=== PATIENT | female | born 1965 | race African-American/Black ===

== ENCOUNTER → 2018-04-27 | Outpatient (CLI) | payer BC ==
--- NOTE | 2018-04-27 14:00 | MM ---
Reason for exam: screening (asymptomatic). Last mammogram was performed 2 years and 10 months ago. Physical Findings: A clinical breast exam by your physician is recommended on an annual basis and results should be correlated with mammographic findings. MG Screening Mammo w CAD Bilateral CC and MLO view(s) were taken. Prior study comparison: July 01, 2015, bilateral MG screening mammo w CAD. March 28, 2013, bilateral digital screening mammo w/CAD. The breast tissue is extremely dense which could obscure a lesion on mammography. There is no discrete abnormality. ASSESSMENT: Negative, BI-RAD 1 RECOMMENDATION: Routine screening mammogram of both breasts in 1 year.
== END | disposition home or self-care (01) ==
LOC: RADMAMWWP 06:54
PROVIDERS: ATTEND Family Medicine
DX: Z12.31 Encounter for screening mammogram for malignant neoplasm of breast (principal)
CPT/HCPCS: 77067

== ENCOUNTER 2018-06-24 06:37 | Day surgery (SDC) | payer BC ==
[2018-06-22 09:02] VITALS: BMI 37.4
[~2018-06-24 06:37] MED LIST: LACTATED RINGERS 1,000 ML IV SCH
[2018-06-24 07:01] VITALS: TEMP 98
[2018-06-24] MEDS ORDERED: LACTATED RINGERS 1,000 ML IV ONE ×2 (07:12)
--- NOTE | 2018-06-24 07:27 | P.GSHP ---
History of Present Illness H&P Date: 06/24/18 CHIEF COMPLAINT: Colon screen HISTORY OF PRESENT ILLNESS: The patient is a 53-year-old female who presents for colon screen. Lower endoscopy was offered for further evaluation and management. PAST MEDICAL HISTORY: Please see list. PAST SURGICAL HISTORY: Please see list. MEDICATIONS: Please see list. ALLERGIES: Please see list. SOCIAL HISTORY: No illicit drug use FAMILY HISTORY: No reports of Crohn disease or ulcerative colitis. REVIEW OF ORGAN SYSTEMS: CONSTITUTIONAL: No reports of fevers or chills. PHYSICAL EXAM: VITAL SIGNS: Stable GENERAL: Well-developed pleasant in no acute distress. HEENT: No scleral icterus. Extraocular movements grossly intact. Moist buccal mucosa. NECK: Supple without lymphadenopathy. CHEST: Unlabored respirations. Equal bilateral excursions. CARDIOVASCULAR: Regular rate and rhythm. Distal 2+ pulses. ABDOMEN: Soft, nontender, nondistended. MUSCULOSKELETAL: No clubbing, cyanosis, or edema. ASSESSMENT: 1. Colon screen. PLAN: 1. Recommend proceeding with a lower endoscopy Past Medical History Past Medical History: Hypertension History of Any Multi-Drug Resistant Organisms: None Reported Past Surgical History: No Surgical Hx Reported Past Anesthesia/Blood Transfusion Reactions: No Reported Reaction Additional Past Anesthesia/Blood Transfusion Reaction / Comment(s): NO PRIOR SURGICAL HX Smoking Status: Current every day smoker - Past Family History Mother Family Medical History: No Reported History Medications and Allergies Home Medications Medication Instructions Recorded Confirmed Type Hydrochlorothiazide [Hydrodiuril] 25 mg PO DAILY 06/22/18 06/22/18 History Allergies Allergy/AdvReac Type Severity Reaction Status Date / Time No Known Allergies Allergy Verified 06/22/18 08:57 Surgical - Exam Vital Signs Temp Pulse Resp BP Pulse Ox 98.0 F 93 18 139/86 100 06/24/18 06:59 06/24/18 06:59 06/24/18 06:59 06/24/18 06:59 06/24/18 06:59
[2018-06-24] MEDS ORDERED: MIDAZOLAM 2 MG/2 ML VIAL ONE (07:28)
[2018-06-24] MEDS ORDERED: PROPOFOL 10 MG/ML 20 ML VIAL IV ONE (07:28)
[2018-06-24] MEDS ORDERED: fentaNYL (PF) 50 MCG/ML 2 ML AMP ONE (07:28)
[2018-06-24 08:07] VITALS: BP 121/89; PULSE 77; RESP 16
--- NOTE | 2018-06-24 08:54 | P.PCN ---
Date of Procedure: 06/24/18 Description of Procedure: PREOPERATIVE DIAGNOSIS: Colonoscopy screening, first POSTOPERATIVE DIAGNOSIS: Colonoscopy screening, first Multiple tubular adenomas throughout the colon. External hemorrhoids, grade 3. OPERATION: Colonoscopy to the ileocecal valve and appendiceal orifice. Colonoscopy with multiple cold forceps biopsies. SURGEON: Andreea Marquez MD. ANESTHESIA: MAC. INDICATIONS: The patient is a 53-year-old female who presents for her FIRST colonoscopy screening. Benefits and risks were described and informed consent was obtained. DESCRIPTION OF PROCEDURE: The patient had undergone Gatorade, MiraLAX and Dulcolax prep. She had been brought into the operating room and laid in the left lateral decubitus position. After adequate intravenous sedation, the rectum was examined with 2% lidocaine jelly. External hemorrhoids were encountered. The rectal tone was within normal limits. No lesions were palpated in the rectal vault. An Olympus colonoscope was advanced until the ileocecal valve and appendiceal orifice were clearly viewed. The prep was fair with visualization of the mucosal folds. The scope was removed with visualization of each mucosal fold. No scattered diverticulosis was encountered. Multiple colonic polyps were found and cold forcep biopsy. No evidence of focal colitis was found. Retroflexion of the scope demonstrated grade 1 internal hemorrhoids without active bleeding or inflammation. The colon was desufflated. The patient had tolerated the procedure well. Withdrawal time was over 6 minutes. FINDINGS: Internal hemorrhoids, grade 1 External hemorrhoids, grade 3. No arteriovenous malformations. No sigmoid diverticulosis Removal of 4 polyps: - Cold forceps biopsy at 20 cm from the anal verge, 3 mm polyps x 2, sigmoid colon - Cold forceps biopsy at 70 cm from the anal verge, 4 mm polyp, descending colon - Cold forceps biopsy at proximal ascending colon, 4 mm polyp. No focal colitis. RECOMMENDATIONS: Given severity of tubular adenomas, recommend repeat colonoscopy 5 years, 2022 Plan - Discharge Summary New Discharge Prescriptions: No Action Hydrochlorothiazide [Hydrodiuril] 25 mg PO DAILY Discharge Medication List Hydrochlorothiazide [Hydrodiuril] 25 mg PO DAILY 06/22/18 [History] Follow up Appointment(s)/Referral(s): Andreea Marquez MD [STAFF PHYSICIAN] - As Needed Patient Instructions/Handouts: *Surgery [facility] - (Anesthesia) Endoscopy Discharge Instructions, Gastric Polyps (DC), Colonoscopy (DC) Activity/Diet/Wound Care/Special Instructions: Follow-up in 5 years, 2022 Discharge Disposition: HOME SELF-CARE
== END 2018-06-24 08:37 | disposition home or self-care (01) ==
LOC: ORWHC2ENDO 06:37
PROVIDERS: ATTEND Surgery Plastic and Reconstructive Surgery
DX: Z12.11 Encounter for screening for malignant neoplasm of colon (principal); D12.2 Benign neoplasm of ascending colon; K63.5 Polyp of colon; K64.0 First degree hemorrhoids; K64.2 Third degree hemorrhoids; I10 Essential (primary) hypertension; F17.200 Nicotine dependence, unspecified, uncomplicated; Z79.899 Other long term (current) drug therapy
CPT/HCPCS: 81025; 88305; 45380; J2250; J3010; J2704

== ENCOUNTER → 2018-12-16 | Outpatient (CLI) | payer BC ==
--- NOTE | 2018-12-16 12:41 | ECHOS ---
STRESS ECHOCARDIOGRAM DATE OF SERVICE: 12/16/2018 INDICATIONS: Abnormal EKG. MEDICATIONS: BASELINE HEART RATE: 94 BASELINE BLOOD PRESSURE: 141/74 MAXIMUM HEART RATE: 142 MAXIMUM BLOOD PRESSURE: 167/78 85% MPHR: 142 100% MPHR: 167 METS: 7.1 MAXIMUM STAGE REACHED: II TOTAL EXERCISE TIME: 6 minutes CLINICAL INFORMATION: Patient was exercised for a total period of 6 minutes. The peak heart rate of 142 was achieved. Maximum blood pressure of 167/78 mmHg was noted. Resting EKG shows normal sinus rhythm with normal NC interval and QRS duration and normal ST-T waves. No ST- segment depression suggestive of ischemia is noted. The baseline echocardiographic images reveal normal left ventricular chamber size with normal left ventricular systolic function. In the immediate postexercise period, normal increase in the wall thickness and contractility is noted. FINAL IMPRESSION: This stress echocardiographic study is negative for stress-induced ischemia. EKG portion of the stress test is not suggestive of ischemia. MMODL / IJN: [id number] /
== END | disposition home or self-care (01) ==
LOC: RADNMMAIN 08:58
PROVIDERS: ATTEND Family Medicine
DX: R94.31 Abnormal electrocardiogram [ECG] [EKG] (principal)
CPT/HCPCS: 93351

== ENCOUNTER → 2020-11-27 | Outpatient (CLI) | payer BC ==
--- NOTE | 2020-11-28 13:42 | MM ---
Reason for exam: screening (asymptomatic). Last mammogram was performed 2 years and 7 months ago. History: Patient is postmenopausal. Physical Findings: A clinical breast exam by your physician is recommended on an annual basis and results should be correlated with mammographic findings. MG Screening Mammo w CAD Bilateral CC and MLO view(s) were taken. Prior study comparison: April 27, 2018, bilateral MG screening mammo w CAD. July 01, 2015, bilateral MG screening mammo w CAD. The breast tissue is heterogeneously dense. This may lower the sensitivity of mammography. No significant changes when compared with prior studies. ASSESSMENT: Benign, BI-RAD 2 RECOMMENDATION: Routine screening mammogram of both breasts in 1 year.
== END | disposition home or self-care (01) ==
LOC: RADMAMWWP 07:50
PROVIDERS: ATTEND Family Medicine
DX: Z12.31 Encounter for screening mammogram for malignant neoplasm of breast (principal)
CPT/HCPCS: 77067

== ENCOUNTER → 2022-10-07 | Outpatient (CLI) | payer BC ==
--- NOTE | 2022-10-08 17:43 | MM ---
Reason for Exam: Screening (asymptomatic). Last mammogram was performed 1 year(s) and 10 month(s) ago. Patient History: Menarche at age 11. First Full-Term at age 17. Postmenopausal. Risk Values: [place] 5 year model risk: 1.0%. NCI Lifetime model risk: 6.3%. Prior Study Comparison: 07/01/2015 Bilateral Screening Mammogram, [facility]. 04/27/2018 Bilateral Screening Mammogram, [facility]. 11/27/2020 Bilateral Screening Mammogram, [facility]. Tissue Density: The breast tissue is extremely dense which could obscure a lesion on mammography. Findings: Analyzed By CAD. Pattern appears stable. No significant interval change is evident. Stable focal asymmetry is 12:00 position left breast. No suspicious groups of microcalcifications, spiculated or lobular masses, architectural distortion or other secondary signs of malignancy are mammographically apparent. Overall Assessment: Benign, BI-RAD 2 Management: Screening Mammogram of both breasts in 1 year. A negative mammogram report should not preclude additional follow up of suspicious palpable abnormalities. Patient should continue monthly self breast exam. A clinical breast exam by your physician is recommended on an annual basis and results should be correlated with mammographic findings. Electronically signed and approved by: Nate Adhikari D.O. Radiologis
== END | disposition home or self-care (01) ==
LOC: RADMAMWWP 15:56
PROVIDERS: ATTEND Family Medicine
DX: Z12.31 Encounter for screening mammogram for malignant neoplasm of breast (principal); Z78.0 Asymptomatic menopausal state
CPT/HCPCS: 77067

== ENCOUNTER 2024-08-09 08:16 | Day surgery (SDC) | payer BC, OTHER ==
[2024-08-07 14:33] VITALS: BMI 32.9
[2024-08-09 08:37] VITALS: TEMP 96.1
[2024-08-09] MEDS: IV FLUID CONTINUATION 1,000 ML IV ONE (08:43)
[2024-08-09] MEDS ORDERED: PROPOFOL 10 MG/ML 20 ML VIAL IV ONE (09:10)
--- NOTE | 2024-08-09 09:55 | P.GSHP ---
History of Present Illness H&P Date: 08/09/24 CHIEF COMPLAINT: Colon screen HISTORY OF PRESENT ILLNESS: The patient is a 59-year-old female who presents for colon screen. Lower endoscopy was offered for further evaluation and management. PAST MEDICAL HISTORY: Please see list. PAST SURGICAL HISTORY: Please see list. MEDICATIONS: Please see list. ALLERGIES: Please see list. SOCIAL HISTORY: No illicit drug use FAMILY HISTORY: No reports of Crohn disease or ulcerative colitis. REVIEW OF ORGAN SYSTEMS: CONSTITUTIONAL: No reports of fevers or chills. PHYSICAL EXAM: VITAL SIGNS: Stable GENERAL: Well-developed pleasant in no acute distress. HEENT: No scleral icterus. Extraocular movements grossly intact. Moist buccal mucosa. NECK: Supple without lymphadenopathy. CHEST: Unlabored respirations. Equal bilateral excursions. CARDIOVASCULAR: Regular rate and rhythm. Distal 2+ pulses. ABDOMEN: Soft, nontender, nondistended. MUSCULOSKELETAL: No clubbing, cyanosis, or edema. ASSESSMENT: 1. Colon screen. PLAN: 1. Recommend proceeding with a lower endoscopy Past Medical History Past Medical History: Hyperlipidemia, Thyroid Disorder History of Any Multi-Drug Resistant Organisms: None Reported Past Surgical History: Section, Tubal Ligation Additional Past Surgical History / Comment(s): Colonoscopy, thyroidectomy Past Anesthesia/Blood Transfusion Reactions: No Reported Reaction Smoking Status: Vaper - Past Family History Mother Family Medical History: No Reported History Medications and Allergies Home Medications Medication Instructions Recorded Confirmed Type Cholecalciferol [Vitamin D3 (10 10 mcg PO DAILY 08/07/24 08/07/24 History Mcg = 400 Iu)] Levothyroxine Sodium [Synthroid] 125 mcg PO DAILY 08/07/24 08/07/24 History Lisinopril-Hctz 10-12.5 mg 1 tab PO DAILY 08/07/24 08/07/24 History [Zestoretic 10-12.5] Allergies Allergy/AdvReac Type Severity Reaction Status Date / Time No Known Allergies Allergy Verified 08/09/24 08:32 Surgical - Exam Vital Signs Temp Pulse Resp BP Pulse Ox 96.1 F L 74 16 132/75 96 08/09/24 08:36 08/09/24 08:36 08/09/24 08:36 08/09/24 08:36 08/09/24 08:36
--- NOTE | 2024-08-09 09:56 | P.PCN ---
Date of Procedure: 08/09/24 Description of Procedure: PREOPERATIVE DIAGNOSIS: Personal history colon polyp Colonoscopy screening. POSTOPERATIVE DIAGNOSIS: Colonoscopy screening. Internal/external hemorrhoids, grade 2 OPERATION: Colonoscopy to the cecum, ileocecal valve and appendiceal orifice. SURGEON: Andreea Marquez MD. ANESTHESIA: MAC. INDICATIONS: The patient is a 59-year-old female who presents for colonoscopy screening. Benefits and risks were described and informed consent was obtained. DESCRIPTION OF PROCEDURE: The patient had undergone GoLytely prep. The patient had been brought into the operating room and laid in the left lateral decubitus position. After adequate intravenous sedation, the rectum was examined with 2% lidocaine jelly. External hemorrhoids were encountered. The rectal tone was within normal limits. No lesions were palpated in the rectal vault. An Olympus colonoscope was advanced until the cecum, ileocecal valve and appendiceal orifice were clearly viewed. The prep was good. No scattered diverticulosis was encountered. No colonic polyps were found. No evidence of focal colitis was found. Retroflexion of the scope demonstrated grade 2 internal hemorrhoids without active bleeding or inflammation. The colon was desufflated. The patient had tolerated the procedure well. Withdrawal time was over 6 minutes. FINDINGS: Aronchick preparation quality scale 2 (1-5) Internal hemorrhoids, grade 2 External prolapsed hemorrhoids, grade 2 No arteriovenous malformations. No adenomatous polyps. No focal colitis. RECOMMENDATIONS: Lower endoscopy in 5 years, 2028 Plan - Discharge Summary Discharge Rx Participant: No New Discharge Prescriptions: Continue Cholecalciferol [Vitamin D3 (10 Mcg = 400 Iu)] 10 mcg PO DAILY Lisinopril-Hctz 10-12.5 mg [Zestoretic 10-12.5] 1 tab PO DAILY Levothyroxine Sodium [Synthroid] 125 mcg PO DAILY Discharge Medication List Cholecalciferol [Vitamin D3 (10 Mcg = 400 Iu)] 10 mcg PO DAILY 08/07/24 [History] Levothyroxine Sodium [Synthroid] 125 mcg PO DAILY 08/07/24 [History] Lisinopril-Hctz 10-12.5 mg [Zestoretic 10-12.5] 1 tab PO DAILY 08/07/24 [History] Follow up Appointment(s)/Referral(s): Andreea Marquez MD [STAFF PHYSICIAN] - As Needed Patient Instructions/Handouts: Hemorrhoids (DC) Activity/Diet/Wound Care/Special Instructions: Repeat colonoscopy in 5 years, 2028 Discharge Disposition: HOME SELF-CARE
[2024-08-09 10:14] VITALS: BP 138/82; PULSE 71; RESP 14
== END 2024-08-09 10:25 | disposition home or self-care (01) ==
LOC: ORWHC2ENDO 08:16
PROVIDERS: ATTEND Surgery Plastic and Reconstructive Surgery
DX: Z12.11 Encounter for screening for malignant neoplasm of colon (principal); K64.1 Second degree hemorrhoids; K64.4 Residual hemorrhoidal skin tags; E78.5 Hyperlipidemia, unspecified; E89.0 Postprocedural hypothyroidism; F17.290 Nicotine dependence, other tobacco product, uncomplicated; Z79.890 Hormone replacement therapy; Z79.899 Other long term (current) drug therapy; Z86.0100 Personal history of colon polyps, unspecified
CPT/HCPCS: J2704; G0121; 45378